=== PATIENT | male | born 1955 | race Caucasian/White ===

== ENCOUNTER 2019-02-06 12:14 | Day surgery (SDC) | payer BC ==
[~2019-02-06 12:14] MED LIST: Propofol 200 MG/20 ML SDV ONE
[2019-02-06] MEDS ORDERED: Sodium Chloride 0.9% 10 ML Syringe FLUSH PRN (12:15)
[2019-02-06] MEDS ORDERED: Lactated Ringers 1,000 ML IV SCH (12:15)
--- NOTE | 2019-02-06 13:52 | PCM.PN ---
- General Info Date of Service: 02/06/19 - Review of Systems Systems Review Comment:: 64-year-old male referred for his initial screening colonoscopy. He denies any recent change in bowel habits. He is medically stable to proceed today with no significant changes in his health status recently. I have discussed the proposed operative procedure with the patient. Risks such as but not limited to bleeding and GI injury reviewed. He agrees to proceed. - Patient Data Vitals - Most Recent: Last Vital Signs Temp 98.1 F 02/06/19 12:25 Pulse 75 02/06/19 12:25 Resp 18 02/06/19 12:25 BP 159/100 H 02/06/19 12:51 Pulse Ox 98 02/06/19 12:25 Weight - Most Recent: 89.811 kg Med Orders - Current: Current Medications Lactated Ringer's (Ringers, Lactated) 1,000 mls @ 125 mls/hr IV ASDIRECTED ALBERTO Last Admin: 02/06/19 12:29 Dose: 125 mls/hr Sodium Chloride (Saline Flush) 10 ml FLUSH ASDIRECTED PRN PRN Reason: Keep Vein Open Discontinued Medications Propofol (Diprivan 20 Ml) Confirm Administered Dose 400 mg .ROUTE .STK-MED ONE Stop: 02/06/19 12:10 - Problem List Review Problem List Initiated/Reviewed/Updated: Yes - My Orders Last 24 Hours: My Active Orders 02/06/19 12:15 Patient Status [ADT] Routine Peripheral IV Care [RC] . DIRECTED Verify Patient Consent Obtain [RC] ASDIRECTED Lactated Ringers [Ringers, Lactated] 1,000 ml IV ASDIRECTED Sodium Chloride 0.9% [Saline Flush] 10 ml FLUSH ASDIRECTED PRN Peripheral IV Insertion Adult [OM.PC] Routine - Assessment Assessment:: colon cancer screening - Plan Plan:: colonoscopy
[2019-02-06] MEDS ORDERED: Propofol 200 MG/20 ML SDV ONE ×2 (13:55→14:41)
--- NOTE | 2019-02-06 14:45 | PCM.OPNOTE ---
- General Post-Op/Procedure Note Date of Surgery/Procedure: 02/06/19 Operative Procedure(s): Colonoscopy with polypectomy Findings: Multiple colon polyps Extensive Sigmoid Diverticulosis Pre Op Diagnosis: Colon Cancer Screening Post-Op Diagnosis: Colon Polyps. Sigmoid Diverticulosis Anesthesia Technique: MAC Primary Surgeon: Armen Gleason Pathology: Colon Polyps Output, Urine Amount: 0 EBL in mLs: 0 Complications: None Condition: Good
--- NOTE | 2019-02-06 18:28 | OR ---
Date of Procedure: 02/06/2019 PREOPERATIVE DIAGNOSIS: Colon cancer screening. POSTOPERATIVE DIAGNOSIS: Colon polyps and sigmoid diverticulosis. OPERATION PERFORMED: Colonoscopy with polypectomy. INDICATIONS FOR SURGERY: This 64-year-old male was referred for his initial screening colonoscopy. He denies any recent change in bowel habits. FINDINGS: The patient had 3 polyps noted on today's exam. There is a 7 mm sessile polyp noted in the rectum 10 cm from the anal verge. There is a 2 cm pedunculated polyp noted in the sigmoid colon, 25 cm from the anal verge, and there is a 6 mm sessile polyp in the cecum. The patient also has extensive diverticulosis in the sigmoid colon, and this does cause some tortuosity of the colon, but there is no sign of acute inflammation or other complication. DESCRIPTION OF PROCEDURE: The patient was taken to the operating room. He was given intravenous sedation, and with him in the left lateral decubitus position, digital rectal exam was performed showing no rectal masses. The Olympus colonoscope was inserted into the rectum. Retroflexed examination of the rectal canal was performed, and in the rectum, the above-described rectal polyp was identified. This was removed with a cautery snare and retrieved into a polyp trap. The scope was then advanced to the sigmoid colon region where the larger sigmoid colon polyp was identified. This was removed with a cautery snare. It was retrieved by holding the polyp on the end of the scope with suction and withdrawing it from the body and retrieving the polyp. The scope was reinserted into the rectum and then carefully advanced up through the entire length of the colon until the cecum was reached. Cecal acquisition was confirmed by noting the normal cecal anatomy including the appendiceal orifice and ileocecal valve. The light was also noted to transilluminate the abdominal wall in the right lower quadrant. In the cecum, the cecal polyp was noted, and this was removed with a cautery snare and retrieved into a polyp trap. The scope was then slowly withdrawn sequentially re-examining the colonic segments until the entire colon and rectum had been fully examined. The scope was then removed and the patient was taken from the operating room in satisfactory condition. ESTIMATED BLOOD LOSS: 0. COMPLICATIONS: None. PROGNOSIS: Good. SIM Gleason MD /[id number]
== END 2019-02-06 15:45 | disposition home or self-care (01) ==
LOC: LL.SDS 12:14
PROVIDERS: ATTEND Surgery
DX: Z12.11 Encounter for screening for malignant neoplasm of colon (principal); D12.0 Benign neoplasm of cecum; D12.5 Benign neoplasm of sigmoid colon; D12.8 Benign neoplasm of rectum; K57.30 Diverticulosis of large intestine without perforation or abscess without bleeding; I10 Essential (primary) hypertension; E78.2 Mixed hyperlipidemia; J44.9 Chronic obstructive pulmonary disease, unspecified; G47.33 Obstructive sleep apnea (adult) (pediatric); Z87.891 Personal history of nicotine dependence; Z79.899 Other long term (current) drug therapy
CPT/HCPCS: 45385; J2704; J7120

== ENCOUNTER 2020-07-13 09:30 | Emergency (ER) | payer BC, OTHER ==
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
== END 2020-07-13 10:20 | disposition home or self-care (01) ==
LOC: LL.ED 09:30
DX: S61.412A Laceration without foreign body of left hand, initial encounter (principal); S93.432A Sprain of tibiofibular ligament of left ankle, initial encounter; M89.49 Other hypertrophic osteoarthropathy, multiple sites; E78.2 Mixed hyperlipidemia; J43.1 Panlobular emphysema; G47.30 Sleep apnea, unspecified; I10 Essential (primary) hypertension; F41.8 Other specified anxiety disorders; E66.9 Obesity, unspecified; Z87.891 Personal history of nicotine dependence; Z79.899 Other long term (current) drug therapy; W13.2XXA Fall from, out of or through roof, initial encounter
CPT/HCPCS: 73610-LT; 99283-25

== ENCOUNTER 2021-12-19 09:03 | Emergency (ER) | payer OTHER ==
[2021-12-19] MEDS ORDERED: Sodium Chloride 0.9% 10 ML Syringe FLUSH PRN (09:05)
[2021-12-19 09:52] LABS: ANION GAP 15.6 meq/L (7-15); CHLORIDE,CL 94 mmol/L (98-107); SODIUM,NA 131 mmol/L (136-145)
== END 2021-12-19 10:05 | disposition home or self-care (01) ==
LOC: LL.ED 09:03
DX: R07.89 Other chest pain (principal); E78.00 Pure hypercholesterolemia, unspecified; J44.9 Chronic obstructive pulmonary disease, unspecified; I10 Essential (primary) hypertension; E66.9 Obesity, unspecified; Z68.29 Body mass index [BMI] 29.0-29.9, adult; Z79.899 Other long term (current) drug therapy
CPT/HCPCS: 36415; 80053; 84484; 85025; 93005; 99284; 99285-25